=== PATIENT | male | born 1965 | race Caucasian/White ===

== ENCOUNTER → 2019-09-01 14:58 | Outpatient (BNVA) | payer SELFPAY | PROVIDERS: Visit Provider Family Medicine | DX: I10 Essential (primary) hypertension (principal) | CPT/HCPCS: 80048 ==

== ENCOUNTER → 2019-09-06 14:46 | Outpatient (BNVA) | payer SELFPAY | PROVIDERS: Visit Provider Family Medicine | DX: R73.09 Other abnormal glucose (principal) | CPT/HCPCS: 83036 ==

== ENCOUNTER → 2019-09-30 15:10 | Outpatient (BNVA) | payer SELFPAY | PROVIDERS: PCP Family Medicine; Visit Provider Family Medicine | DX: E11.9 Type 2 diabetes mellitus without complications (principal); I10 Essential (primary) hypertension | CPT/HCPCS: 80048; 82044 ==

== ENCOUNTER → 2019-11-02 09:09 | Outpatient (BNVA) | payer SELFPAY | PROVIDERS: PCP Family Medicine; Visit Provider Family Medicine | DX: E11.9 Type 2 diabetes mellitus without complications (principal) | CPT/HCPCS: 80053; 80061; 84153 ==

== ENCOUNTER → 2020-02-02 09:11 | Outpatient (BNVA) | payer SELFPAY | PROVIDERS: PCP Family Medicine; Visit Provider Family Medicine | DX: E11.9 Type 2 diabetes mellitus without complications (principal); I10 Essential (primary) hypertension | CPT/HCPCS: 80053; 83036 ==

== ENCOUNTER → 2020-05-04 09:31 | Outpatient (BNVA) | payer BC, SELFPAY | PROVIDERS: PCP Family Medicine; Visit Provider Family Medicine | DX: E78.5 Hyperlipidemia, unspecified (principal); I10 Essential (primary) hypertension; F17.219 Nicotine dependence, cigarettes, with unspecified nicotine-induced disorders | CPT/HCPCS: 80053; 80061 ==

== ENCOUNTER 2020-08-23 13:50 | Emergency (ER) | payer BC, SELFPAY ==
[2020-08-23 14:32] VITALS: BP 146/93; PULSE 79; RESP 16; TEMP 36.5; O2SAT 98; BMI 34.4
--- NOTE | 2020-08-23 14:39 | W.ED.EXTPRO ---
HPI - Extremity Problem General: Chief complaint: Extremity Injury, Upper Stated complaint: arm injury / fall Time Seen by Provider: 08/23/20 14:39 Source: patient Mode of arrival: ambulatory Limitations: no limitations History of Present Illness: HPI Narrative: Patient is a 54-year-old male who presents to ED today with a complaint of a right forearm/elbow injury. Patient states he was carrying a heavy dresser when he slipped on wet grass and fell. He states the corner of the dresser landed onto his right proximal forearm/elbow. He has noticed pain and swelling since the event. No other injuries or complaints at this time. MD Complaint: extremity pain and extremity swelling Onset (ago): hour(s) Pain Consistency: constant Location: right and upper extremity Radiation: none Relieving factors: immobilization Exacerbating factors: range of motion and palpation Associated symptoms: Reports no associated symptoms Review of Systems Musc: Reports: extremity pain (R forearm) and extremity swelling (R forearm-localized to site of injury); Denies: joint pain, joint swelling, joint stiffness or limited range of motion Neuro: Denies: numbness in extremities, weakness in extremities or sensory changes PFSH ED PFSH: Medical History (Updated 08/23/20 @ 15:23 by MARIBETH Tineo) History of kidney cancer Surgical History H/O hernia repair H/O knee surgery History of back surgery History of cholecystectomy History of kidney removal 2017 - right History of tonsillectomy Family History Other Hypertension Social History Smoking and tobacco status: current every day smoker cigarettes Packs smoked per day: 0.50 Alcohol intake: current Alcohol intake frequency: holidays/special occasions only Physical Exam Const: COMMON NORMALS: no acute distress, patient oriented x3, no limitations and alert Extremity: EXTREMITY IMAGE (FRONT): 1. superficial abrasion; mild amount of localized pain/swelling; full ROM of elbow; no pain out of proportion to exam; can wiggle all fingers and flex/ext wrist w/o much discomfort; sensory intact; radial pulse normal; cap refill brisk Neuro: COMMON NORMALS: patient oriented x3, moves all extremities, no focal motor deficits and no sensory deficits noted SENSORIUM/ORIENTATION: Yes alert Skin: NARRATIVE SKIN EXAM: R forearm abrasion-otherwise normal skin exam Course Vital Signs: Vital signs: Vital Signs Temperature 97.7 F 08/23/20 14:32 Pulse Rate 79 08/23/20 14:32 Respiratory Rate 16 08/23/20 14:32 Blood Pressure 146/93 08/23/20 14:32 Pulse Oximetry 98 08/23/20 14:32 MDM - Extremity (Nontraumatic) Imaging Data^: XR R elbow/proximal forearm: Radiologist's impression: [address] [address] XRay Report Signed Patient: Jules Chávez Unit #: [id number] : 1965 Age/Sex: 54 / M ADM Date: 08/23/20 Loc: ER Room/Bed: Attending Dr: Ordering Provider/Ordering MD: Belinda Silvestre Date of Service: 08/23/20 Procedure(s): XR elbow RT min 3V* [id number] Accession Number(s): [id number] Report Number: [id number] WS: [id number] Exam: XR elbow RT min 3V* [id number] Date/Time of Exam: 08/23/2020 2:46 PM Reason For Exam: trauma; crush injury Findings: There are no fractures, soft tissue swelling, or calcifications. The elbow shows normal bony alignment. There is no irregularity of the bony architecture. XR/XR elbow RT min 3V* [id number] IMPRESSION: Negative right elbow. Dictated By: Nima Reeves DO Signed By: Nima Reeves DO Signed Date/Time: 08/23/20 1502 DD/ 1501 Discharge Plan Discharge Patient Disposition: Home Clinical Impression: Contusion of forearm, right Qualifiers: Encounter type: initial encounter Qualified Code(s): S50.11XA - Contusion of right forearm, initial encounter Condition: Stable Prescriptions: No Action amlodipine [Norvasc] 5 mg tablet 5 mg PO DAILY Qty: 90 RF: 0 Januvia 100 mg tablet 100 mg PO DAILY Qty: 90 RF: 1 lisinopril 20 mg tablet 20 mg PO DAILY Qty: 90 RF: 1 aspirin [Adult Low Dose Aspirin] 81 mg tablet,delayed release (DR/EC) 81 mg PO DAILY RF: 0 metformin 500 mg tablet 500 mg PO DAILY Qty: 90 RF: 0 atorvastatin 40 mg tablet 40 mg PO .at bedtime Qty: 90 RF: 1 sildenafil (pulm.hypertension) 20 mg tablet See Rx Instructions PO .COMPLEX Qty: 30 RF: 1 Discharge Orders: Discharge ED (Routine); Ordered 08/23/20 Ordered By: Belinda Silvestre Referrals: Anjana Gordon DO [Primary Care Provider] - Patient Instructions: Contusion, RICE Therapy (ED) Activity Restrictions/Additional Instructions: As discussed you may return to the emergency department for worsening or uncontrollable pain, severe pain in your forearm with wiggling your fingers, firmness/hardness noted to the forearm, tingling or loss of sensation, coolness to the extremity, streaking up your arm, fevers, any other concerns you may have. Coding Level of Care Code ED Party Plan Sales Director for Tom Reina
--- NOTE | 2020-08-23 14:46 | XR_ITS ---
WS: [id number] Exam: XR elbow RT min 3V* [id number] Date/Time of Exam: 08/23/2020 2:46 PM Reason For Exam: trauma; crush injury Findings: There are no fractures, soft tissue swelling, or calcifications. The elbow shows normal bony alignme nt. There is no irregularity of the bony architecture. XR/XR elbow RT min 3V* [id number] IMPRESSION: Negative right elbow.
== END 2020-08-23 15:34 | disposition home or self-care (01) ==
PROVIDERS: Emergency Provider Physician Assistant; PCP Family Medicine
DX: S50.11XA Contusion of right forearm, initial encounter (principal); W01.190A Fall on same level from slipping, tripping and stumbling with subsequent striking against furniture, initial encounter
CPT/HCPCS: 73080; 99282

== ENCOUNTER → 2020-10-27 14:09 | Outpatient (BNVA) | payer BC, SELFPAY | PROVIDERS: PCP Family Medicine; Visit Provider Family Medicine | DX: E78.5 Hyperlipidemia, unspecified (principal); I10 Essential (primary) hypertension; E11.9 Type 2 diabetes mellitus without complications; R60.0 Localized edema | CPT/HCPCS: 80053; 83036; 85025 ==

== ENCOUNTER → 2020-11-23 09:43 | Outpatient (BNVA) | payer BC, SELFPAY | PROVIDERS: PCP Family Medicine; Visit Provider Family Medicine | DX: R60.0 Localized edema (principal); E11.9 Type 2 diabetes mellitus without complications; I10 Essential (primary) hypertension; F17.219 Nicotine dependence, cigarettes, with unspecified nicotine-induced disorders | CPT/HCPCS: 80048 ==

== ENCOUNTER → 2021-01-08 09:35 | Outpatient (BNVA) | payer BC, SELFPAY | PROVIDERS: PCP Family Medicine; Visit Provider Family Medicine | DX: E11.9 Type 2 diabetes mellitus without complications (principal); E78.5 Hyperlipidemia, unspecified; Z23 Encounter for immunization; I10 Essential (primary) hypertension; F17.219 Nicotine dependence, cigarettes, with unspecified nicotine-induced disorders | CPT/HCPCS: 80053; 80061; 83036 ==

== ENCOUNTER → 2021-02-15 08:55 | Outpatient (BNVA) | payer BC, SELFPAY | PROVIDERS: PCP Family Medicine; Visit Provider Family Medicine | DX: E11.9 Type 2 diabetes mellitus without complications (principal) | CPT/HCPCS: 80053 ==

== ENCOUNTER → 2021-04-12 08:55 | Outpatient (BNVA) | payer BC, SELFPAY | PROVIDERS: PCP Family Medicine; Visit Provider Family Medicine | DX: E11.9 Type 2 diabetes mellitus without complications (principal); I10 Essential (primary) hypertension; F17.219 Nicotine dependence, cigarettes, with unspecified nicotine-induced disorders | CPT/HCPCS: 80053; 83036 ==

== ENCOUNTER → 2021-11-02 10:48 | Outpatient (BNVA) | payer BC, SELFPAY | PROVIDERS: PCP Family Medicine; Visit Provider Family Medicine | DX: I10 Essential (primary) hypertension (principal); E11.9 Type 2 diabetes mellitus without complications; R35.1 Nocturia | CPT/HCPCS: 80053; 80061; 82043; 83036; 84153; 85025 ==

== ENCOUNTER → 2022-02-01 09:44 | Outpatient (BNVA) | payer BC, SELFPAY | PROVIDERS: PCP Family Medicine; Visit Provider Family Medicine | DX: I10 Essential (primary) hypertension (principal); E78.5 Hyperlipidemia, unspecified; E11.9 Type 2 diabetes mellitus without complications; K21.9 Gastro-esophageal reflux disease without esophagitis; R60.0 Localized edema | CPT/HCPCS: 80053; 80061; 83036 ==

== ENCOUNTER → 2022-07-30 08:30 | Outpatient (BNVA) | payer BC, SELFPAY | PROVIDERS: PCP Family Medicine; Visit Provider Family Medicine | DX: E11.9 Type 2 diabetes mellitus without complications (principal) | CPT/HCPCS: 80053; 83036 ==

== ENCOUNTER → 2023-02-18 09:55 | Outpatient (BNVA) | payer BC, SELFPAY | PROVIDERS: PCP Family Medicine; Visit Provider Family Medicine | DX: E11.9 Type 2 diabetes mellitus without complications (principal); R35.1 Nocturia | CPT/HCPCS: 80053; 80061; 82043; 83036; 84153; 85025 ==

== ENCOUNTER → 2023-05-15 08:34 | Outpatient (BNVA) | payer BC, SELFPAY | PROVIDERS: PCP Family Medicine; Visit Provider Family Medicine | DX: E11.9 Type 2 diabetes mellitus without complications (principal); R60.0 Localized edema; K21.9 Gastro-esophageal reflux disease without esophagitis; N52.1 Erectile dysfunction due to diseases classified elsewhere | CPT/HCPCS: 80053; 83036; 84403 ==

== ENCOUNTER → 2023-08-28 10:09 | Outpatient (BNVA) | payer OTHER, SELFPAY | PROVIDERS: PCP Family Medicine; Visit Provider Family Medicine | DX: E11.9 Type 2 diabetes mellitus without complications (principal); T14.8XXA Other injury of unspecified body region, initial encounter; W57.XXXA Bitten or stung by nonvenomous insect and other nonvenomous arthropods, initial encounter | CPT/HCPCS: 80053; 83036; 86618; 86666; 86757 ==

== ENCOUNTER 2023-12-05 06:00 | Outpatient (CLI) | payer OTHER, SELFPAY | END 2023-12-05 06:01 | disposition home or self-care (01) | LOC: RAD 12-08 09:24 | PROVIDERS: PCP Family Medicine; Visit Provider Family Medicine | DX: E11.9 Type 2 diabetes mellitus without complications (principal) | CPT/HCPCS: 83036 ==

== ENCOUNTER 2023-12-23 08:36 | Outpatient (CLI) | payer OTHER, SELFPAY ==
--- NOTE | 2023-12-23 08:42 | CT_ITS ---
WS: [id number] LDCT LUNG CANCER SCREENING TECHNIQUE: Noncontrast CT of the chest with coronal and sagittal reformatted images. CLINICAL INFORMATION: LDCT lung cancer screening; nicotine dependence COMPARISON: None. DLP: 120.09 mGy.cm DIvol: Mean CTDIvol: 2.90 (mGy) All CT scans at [facility] use at least one of these dose optimization techniques: automat ed exposure control; mA and/or kV adjustment per patient size (includes targeted exams where dose is matched to clinical indication); or iterative reconstruction. FINDINGS: No suspicious pulmonary parenchymal abnormalities. Lungs are well aerated. Mild thoracic curve. Moderate thoracic kyphosis. Cholecystectomy clips. Normal GE junction. Fluid dis tended stomach. Adrenal glands are normal. Coronary calcification. No mediastinal or hilar lymphadeno pepper. No axillary lymphadenopathy. CT/CT lung screening [id number] IMPRESSION: LUNG-RADS: 1-Negative FOLLOW UP: 12 Month: Continue annual screening with LDCT
== END 2023-12-23 08:37 | disposition home or self-care (01) ==
LOC: RAD 08:37
PROVIDERS: PCP Family Medicine; Visit Provider Family Medicine
DX: Z13.820 Encounter for screening for osteoporosis (principal); F17.219 Nicotine dependence, cigarettes, with unspecified nicotine-induced disorders; E11.9 Type 2 diabetes mellitus without complications; M40.204 Unspecified kyphosis, thoracic region; Z90.49 Acquired absence of other specified parts of digestive tract; I25.84 Coronary atherosclerosis due to calcified coronary lesion
CPT/HCPCS: 71271

== ENCOUNTER → 2024-03-01 08:22 | Outpatient (BNVA) | payer OTHER, SELFPAY | PROVIDERS: PCP Family Medicine; Visit Provider Family Medicine | DX: Z00.00 Encounter for general adult medical examination without abnormal findings (principal); E11.9 Type 2 diabetes mellitus without complications | CPT/HCPCS: 80053; 80061; 82043; 84443; 85025; G0103 ==

== ENCOUNTER → 2024-03-08 14:56 | Outpatient (BNVA) | payer OTHER, SELFPAY | PROVIDERS: PCP Family Medicine; Visit Provider Nurse Practitioner | DX: M70.61 Trochanteric bursitis, right hip (principal); M70.62 Trochanteric bursitis, left hip; M16.0 Bilateral primary osteoarthritis of hip; M25.551 Pain in right hip | CPT/HCPCS: 73502 ==

== ENCOUNTER 2024-03-22 05:44 | Day surgery (SDC) | payer OTHER, SELFPAY ==
--- NOTE | 2024-03-21 10:42 | ANES.PREANE2 ---
Pre-Anesthetic Assessment Height/Weight: Height 5 ft 7 in Preop Diagnosis: Sebaceous cyst Operation Date: 03/22/24 07:00 Proposed Procedures p excision of sebaceous cyst 06273, L72.3(Not Applicable) - Nacho Schmitz MD Was Beta Sharee taken within 24 hours: N/A Was Clonidine taken within 24 hours: N/A Social Tobacco and No alcohol Exam alert, oriented x 3 and regular rate & rhythm Decreased breath sounds bilaterally Airway Submandibular: within normal limits Cervical ROM: within normal limits Mallampati: Class III Dentition: other (Edentulous with very large lau) Anesthetic Plan ASA status: 3 Anesthesia: General Other: No prior issues with anesthesia NPO since yesterday History of diabetes on metformin and semaglutide. Last taken 2 weeks ago GERD on Protonix Hypertension on lisinopril Current smoker Labs 03/01/2024 reviewed acceptable for procedure. METs greater than 4 Plan for general anesthesia Medications/Allergies Home Medications Medication Instructions Recorded Confirmed Last Taken Type aspirin 81 mg tablet,delayed 81 mg PO DAILY 05/04/20 03/18/24 03/09/24 History release (Adult Low Dose Aspirin) atorvastatin 40 mg tablet 40 mg PO .at bedtime #90 tabs 12/05/23 03/22/24 03/21/24 Rx furosemide 20 mg tablet 20 mg PO DAILY PRN edema #90 tabs 12/05/23 03/22/24 03/21/24 Rx lisinopril 20 mg tablet 20 mg PO DAILY #90 tabs 12/05/23 03/22/24 03/21/24 Rx metformin 500 mg tablet,extended 500 mg PO DAILY #90 tabs 12/05/23 03/22/24 03/21/24 Rx release 24 hr pantoprazole 40 mg tablet,delayed 40 mg PO DAILY #90 tabs 12/05/23 03/22/24 03/21/24 Rx release semaglutide 1 mg/dose (4 mg/3 mL) 1 mg (0.75 mL) SUBCUT .weekly 90 12/05/23 03/22/24 03/08/24 Rx subcutaneous pen injector (Ozempic) days #9 mL diclofenac sodium 1 % topical gel 4 g topical QID #100 grams 03/08/24 03/22/24 Unknown Rx clindamycin HCl 300 mg capsule 300 mg PO Q8H 7 days #21 caps 03/16/24 03/22/24 03/21/24 Rx Allergies Allergy/AdvReac Type Severity Reaction Status Date / Time codeine Allergy Mild NAUSEA Verified 03/18/24 13:02 Penicillins Allergy Unresponsiv Verified 03/01/24 07:54 e varenicline [From Chantix] Allergy HIVES Verified 03/18/24 13:02 PFSH Anesthesia Medical History Screening for lung cancer done 12.23.23--to repeat 1 yr Hx of renal cell cancer R nephrectomy 2017 Chronic right hip pain Leg edema Dyslipidemia Erectile dysfunction Type 2 diabetes mellitus, without long-term current use of insulin Nicotine dependence, cigarettes, with unspecified nicotine-induced disorders started age 17, was up to 2 ppd at one point Hypertension History of kidney cancer Right--renal cell carcinoma; R nephrectomy 2017 Surgical History Hx of colonoscopy 1.2015--repeat 10yrs History of kidney removal 2017 - right H/O knee surgery R knee arthroscopy 1985 History of tonsillectomy History of cholecystectomy H/O hernia repair Umbilical History of back surgery L4 L5 L6 fusion Family History Mother Breast cancer Brother Leukemia Other CAD (coronary artery disease) Hypertension Social History Smoking and tobacco/nicotine status: current every day tobacco/nicotine user cigarettes Packs smoked per day: 0.50 Alcohol intake: current Alcohol intake frequency: holidays/special occasions only Substance/Drug Use: never Household members: spouse Marital status: Number of children: 4 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
[2024-03-22] VITALS (10 sets, daily range): BP systolic 73–128; BP diastolic 52–80; PULSE 84–95; RESP 16–20; TEMP 36.2–36.6; O2SAT 94–100
--- NOTE | 2024-03-22 05:14 | P.HPUD_ITS ---
Surgery/Procedure H&P Update DATE OF PROCEDURE: March 22, 2024 DATE H&P PERFORMED: 03/16/24 H&P UPDATE INFORMATION: I have reviewed H&P completed within last 30 days, I have examined patient prior to procedure, No changes to prior documentation and H&P is in [facility] EMR on date indicated PREOP DIAGNOSIS: Sebaceous cyst PLANNED PROCEDURE: Operation Date: 03/22/24 07:00 Proposed Procedures p excision of sebaceous cyst 68766, L72.3(Not Applicable) - Nacho Schmitz MD
[2024-03-22] MEDS: sodium chloride 0.9% 1,000 ML 30 ML IV (06:09)
[2024-03-22] MEDS: vancomycin 1,500 MG/300 ML PIGGYBACK 200 MG IV (06:15)
[2024-03-22 06:18] LABS: Glucose Point of Care 134 mg/dL (70-110)
[2024-03-22] MEDS: lidocaine-epi 1% 20 mL INJ 10 ML INJECTION (07:26)
[2024-03-22] MEDS: BUPivacaine 0.25% INJ 10 mL INJECTION (07:26)
[2024-03-22] MEDS: VANCOMYCIN ADD-Vantage 1,000 MG VIAL 1000 MG XX (08:05)
--- NOTE | 2024-03-22 08:50 | P.OP_ITS ---
Operative Report Date of procedure: March 22, 2024 Pre-op diagnosis: Sebaceous cyst of the back Post-op diagnosis: Sebaceous cyst of the back with superimposed infection. Post-op findings: There was a large sebaceous cyst of the mid back measuring about 4 x 3 cm and tracking deep up to the level of the fascia. There was superficial redness, upon entering the cyst some purulent material was evacuated cultures were taken. Procedure done: Excision of sebaceous cyst of the back Surgeon: Nacho Schmitz MD Transformer Maker: DEEDEE OR Staff Estimated blood loss: 5 Brief History: This is a 58-year-old male who has a history of sebaceous cyst of the back presented for excision, during preoperative evaluation was noted that the area had become red and increased in size concerning for the possibility of a superimposed infection. After discussion we will resume benefits with side to proceed to the OR for excision. Procedure: Patient was brought into the OR, general anesthesia was given, he was then transferred to the OR bed in a prone position. The back was prepped and draped in usual sterile fashion. An proceeded to amrit the cyst elliptical marking of about 5 cm was done to try to include the cyst in the area where it was closest to the skin. A timeout was conducted. I then proceeded to make an incision using a 15 blade, the incision was deepened to subcutaneous tissue using the blade until the cyst capsule was identified there was some area of fluctuance in the wall of the cyst this area was penetrated and some purulence drained, cultures were obtained. I then proceeded to create flaps on the superior inferior medial and lateral direction with electrocautery surrounding the cyst wall. The cyst was large measuring probably about 5 x 4 cm, I then circumferentially dissected this is to the base, the base was noted to track very deep into the subcutaneous tissue and was closely adherent to the muscular fascia. I transected the cyst at this level and send the specimen to pathology I then used a curette to remove any residual capsule from the base of the wound. The wound was then irrigated with saline. Hemostasis was achieved. Local anesthesia was infiltrated in the tissue. I then irrigated the wound once again and apply some vancomycin powder to facilitate healing of the superimposed infection. Due to purulence noted on the cyst I decided to leave a small opening to allow for packing. I used a 2-0 Vicryl to close the deeper layer of the tissue I then used 3-0 Vicryl to close the subcutaneous tissue number 3-year-old nylon for vertical mattress sutures for the skin. A 1 cm opening was left in the middle of the wound to allow for packing, however inch iodoform packing was inserted through that cavity and a sterile dressing was applied. At the end of the procedure all counts were correct, the patient tolerated well the procedure was transferred to the PACU in stable condition.
--- NOTE | 2024-03-22 09:38 | ANE.PACU2 ---
Inpatient post-anesthesia follow up: Airway intact: Yes Vital signs: Temperature 97.2 F Pulse Rate 88 Respiratory Rate 20 Blood Pressure 122/66 Pulse Oximetry 100 Oxygen Delivery Me thod Room Air Oxygen Flow Rate Fraction of Inspir ed Oxygen Hydration adequate: Yes Nausea and vomiting: No Pain level: 1 Mental status: Baseline
== END 2024-03-22 09:38 | disposition home or self-care (01) ==
PROVIDERS: PCP Family Medicine; Visit Provider Surgery
PROC: (CPT 11404; principal; 2024-03-22 07:00)
DX: L72.0 Epidermal cyst (principal); E11.9 Type 2 diabetes mellitus without complications; Z79.84 Long term (current) use of oral hypoglycemic drugs; K21.9 Gastro-esophageal reflux disease without esophagitis; I10 Essential (primary) hypertension; Z79.82 Long term (current) use of aspirin; E78.5 Hyperlipidemia, unspecified; F17.210 Nicotine dependence, cigarettes, uncomplicated
CPT/HCPCS: 11404; 12032; 36416; 82962; 87070; 87075; 87205; 88304; J0330; J1100; J2250; J2371; J2405; J2704; J3010; J3370; J3490; J7030

== ENCOUNTER → 2024-06-29 08:45 | Outpatient (BNVA) | payer OTHER, SELFPAY | PROVIDERS: PCP Family Medicine; Visit Provider Family Medicine | DX: E11.9 Type 2 diabetes mellitus without complications (principal); D50.9 Iron deficiency anemia, unspecified; F50.83 Pica in adults | CPT/HCPCS: 80053; 82728; 83036; 83550; 85025 ==

== ENCOUNTER 2024-08-29 16:42 | Emergency (ER) | payer OTHER, SELFPAY ==
[2024-08-29 16:52] VITALS: BP 123/97; PULSE 103; RESP 16; TEMP 36.8; O2SAT 96; BMI 34.4
[2024-08-29 16:59] VITALS: BP 123/97
--- NOTE | 2024-08-29 17:08 | XRR_ITS ---
PROCEDURE INFORMATION: Exam: XR Right Ankle Exam date and time: 08/29/2024 5:16 PM Age: 58 years old Clinical indication: Injury or trauma; Fall; Blunt trauma; Ankle; Right TECHNIQUE: Imaging protocol: Radiologic exam of the right ankle. Views: 3 or more views. COMPARISON: No relevant prior studies available. FINDINGS: Bones/joints: No acute fracture or subluxation. No periosteal reaction or callus formation. Plantar calcaneal spur and Achilles enthesophyte (heel spur) are present. Soft tissues: Unremarkable. XR/XR ankle RT min 3V* [id number] IMPRESSION: No acute fracture or subluxation.
[2024-08-29] MEDS: sodium chloride 0.9% 1,000 ML 999 ML IV (17:29)
[2024-08-29 18:03] LABS: Basophils % 0.3 %; Eosinophils % 0.2 %; Hematocrit 31.4 % (37-53); Lymphocytes # 1.1 10^3/uL (0.8-4.8); Lymphocytes % 8.5 %; Mean Corpuscular HGB Conc 30.6 g/dL (30-55); Mean Corpuscular Hemoglobin 23.6 pg (27-33); Mean Corpuscular Volume 77.1 fl (82-101); Mean Platelet Volume 8.6 fL (7.4-10.4); Monocytes # 1.3 10^3/uL (0.2-0.9); Monocytes % 10.1 %; Neutrophils # 10.36 10^3/uL (1.8-7.7); Neutrophils % 80.5 %; Nucleated Red Blood Cells % 0 %; Platelet Count 264 10^3/cmm (157-399); Red Blood Count 4.07 10^6/uL (3.85-5.65); Red Cell Distribution Width 19.7 % (12.1-15.1); White Blood Count 12.86 10^3/uL (3.29-11.43)
[2024-08-29 18:21] VITALS: BP 151/83; O2SAT 100
[2024-08-29 18:26] LABS: Anion Gap 15.8 (5-19); Blood Urea Nitrogen 11 mg/dL (6-20); Calcium 8.1 mg/dL (8.5-10.5); Carbon Dioxide 21 mmol/L (22-29); Chloride 101 mmol/L (98-107); Glucose 142 mg/dL (65-115); Osmolality Calculated 280 mOsm/kg (285-295); Potassium 3.8 mmol/L (3.5-5.1); Sodium 134 mmol/L (136-145)
--- NOTE | 2024-08-29 19:45 | ED_ITS ---
HPI - Nausea/Vomiting/Diarrhea 2 General: Chief complaint: Nausea/Vomiting/Diarrhea Stated complaint: N/V Time Seen by Provider: 08/29/24 16:53 History of Present Illness: This patient is a 58-year-old white male who presents to the emergency department after having a syncopal episode. Patient states he was working outside all day and got dehydrated. He has been doing a lot of yard work and mowing. States he has had some diarrhea, nausea and vomiting as well. No chest pain or shortness of breath. He did twist the right ankle when he had the syncopal episode. Past medical history includes hypertension and [id number] diabetes. Patient also has a history of iron deficiency anemia. Associated nausea: Yes Associated symtoms: Reports nausea and syncope Related Data Home Medications ?Medication ?Instructions ?Recorded ?Confirmed aspirin 81 mg tablet,delayed 81 mg PO DAILY 05/04/20 0 08/02/24 release (Adult Low Dose Aspirin) ascorbic acid (vitamin C) 500 mg mg PO 08/02/24 capsule ferrous sulfate 325 mg (65 mg 325 mg PO DAILY 08/02/24 08/02/24 iron) tablet Previous Rx's ?Medication ?Instructions ?Recorded atorvastatin 40 mg tablet 40 mg PO .at bedtime #90 tab s 12/05/23 lisinopril 20 mg tablet 20 mg PO DAILY #90 tabs 09/21 pantoprazole 40 mg tablet,delayed 40 mg PO DAILY #90 t abs 12/05/23 release diclofenac sodium 1 % topical gel 4 g topical QID #100 grams 03/08/24 furosemide 20 mg tablet 20 mg PO DAILY PRN edema #90 tabs 06/29/24 metformin 500 mg tablet,extended 500 mg PO DAILY #90 t abs 06/29/24 release 24 hr Glucometer #1 ea 07/01/24 Glucose test strips #100 ea 07/01/24 Lancets #100 ea 07/01/24 vitamin-ferrous fumarate 1 tab PO DAILY #30 t abs 08/02/24 28 mg iron-folic acid 800 mcg tablet ( Vitamins with Minerals) semaglutide 2 mg/dose (8 mg/3 mL) 2 mg (0.75 mL) SUBCU T .Weekly #3 mL 08/02/24 subcutaneous pen injector (Ozempic) Allergies Allergy/AdvReac Type Severity Reaction Status Date / Time codeine Allergy Mild NAUSEA Verified 08/02/24 08:05 Penicillins Allergy Unresponsiv Verified 08/02/24 08:05 e varenicline (From Chantix) Allergy HIVES Verified 08/02/24 08:05 Review of Systems 2 General: Reports: 10 or more systems reviewed and unremarkable except in HPI and below Card: Reports: syncope GI: Reports: nausea, vomiting and diarrhea PFSH ED 2 PFSH: Medical History Hx of sebaceous cyst 03/22/24 Dr Schmitz Sebaceous cyst of the back Screening for lung cancer done 12.23.23--to repeat 1 yr Hx of renal cell cancer R nephrectomy 2017 Chronic right hip pain Leg edema Dyslipidemia Erectile dysfunction Type 2 diabetes mellitus, without long-term current use of insulin Nicotine dependence, cigarettes, with unspecified nicotine-induced disorders started age 17, was up to 2 ppd at one point Hypertension History of kidney cancer Right--renal cell carcinoma; R nephrectomy 2017 Surgical History Hx of colonoscopy 1.2015--repeat 10yrs History of kidney removal 2017 - right H/O knee surgery R knee arthroscopy 1985 History of tonsillectomy History of cholecystectomy H/O hernia repair Umbilical History of back surgery L4 L5 L6 fusion Family History Mother Breast cancer Brother Leukemia Other CAD (coronary artery disease) Hypertension Social History Smoking and tobacco/nicotine status: current every day tobacco/nicotine user cigarettes Packs smoked per day: 0.50 Alcohol intake: current Alcohol intake frequency: holidays/special occasions only Substance/Drug Use: never Household members: spouse Marital status: Number of children: 4 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 Physical Exam 2 Const: COMMON NORMALS: no acute distress, patient oriented x3 and no limitations GENERAL APPEARANCE: cooperative and comfortable HENMT: COMMON NORMALS: normocephalic, atraumatic, Normal nasal mucous membranes and turbinates present, moist oral mucous membranes and oropharynx normal HEAD & SCALP: normal to inspection, normocephalic and atraumatic F ODIN & SINUS: normal facial exam NOSE: Normal nasal mucous membranes and turbinates present Eye: COMMON NORMALS: Equal, round and reactive pupils present, EOMs intact bilaterally and conjunctivae normal GENERAL EYE: appearance normal, both eyes and all related structures CONJUNCTIVA: Yes conjunctivae normal PUPIL: Yes Equal, round and reactive pupils present Neck/C-Spine: COMMON NORMALS: supple and no JVD Chest: COMMONS NORMALS: normal inspection of the chest Resp: COMMON NORMALS: normal respiratory effort and clear to auscultation bilaterally AUSCULTATION: clear to auscultation bilaterally Cardio: COMMON NORMALS: no JVD, regular rate, regular rhythm, No gallops present (Cardio), No murmurs present (Cardio) and No rub (Cardio) RATE: r egular rate RHYTHM: regular rhythm GI: COMMON NORMALS: Normal to inspection, nondistended, normoactive bowel sounds present, Soft to palpation and non-tender AUSCULTATION: Yes normoactive bowel sounds PALPATION: Yes Soft to palpation : COMMON NORMALS: Yes no CVA tenderness BLADDER/KIDNEY EXAM: Yes no CVA tenderness Back/Pelvis: COMMON NORMALS: no CVA tenderness and thoracic and lumbar spine normal to inspection Extremity: COMMON NORMALS: normal to inspection Neuro: COMMON NORMALS: patient oriented x3 and CN's II-XII intact bilaterally Psych: COMMON NORMALS: mental status grossly normal, Normal thought process present and cooperative THOUGHT PROCESS: Normal thought process present Skin: COMMON NORMALS: no rashes or lesions noted, turgor normal and no jaundice GENERAL SKIN EXAM: no rashes or lesions noted and turgor normal Course 2 Vital Signs: Vital signs: Vital Signs Temperature 98.3 F 08/29/24 16:52 Pulse Rate 103 H 08/29/24 16:52 Respiratory Rate 16 08/29/24 16:52 Blood Pressure 151/83 08/29/24 18:21 Pulse Oximetry 100 08/29/24 18:21 Oxygen Delivery Me thod Room Air 08/29/24 18:21 MDM - Nausea/Vomiting/Diarrhea Medical Decision Making CBC reveals white blood cell count of 12.9. Hemoglobin 9.6. BMP revealed a blood sugar of 142. Patient was given 4 mg of Zofran IV and 1 L of normal saline. Patient states he is feeling back to normal. He was discharged in stable condition. Recommended he push fluids and get some rest. Follow-up with primary care physician as needed. Lab Data 08/29/24 17:58 08/29/24 17:58 Radiology Impressions Ankle X-Ray 08/29/24 17:08 IMPRESSION: No acute fracture or subluxation. Laboratory Results WBC 12.86 10^3/uL (3.29-11.43) H 08/29/24 17:58 RBC 4.07 10^6/uL (3.85-5.65) 08/29/24 17:58 Hgb 9.60 g/dL (11.27-16.99) L 08/29/24 17:58 Hct 31.4 % (37-53) L 08/29/24 17:58 MCV 77.1 fl (82-101) L 08/29/24 17:58 MCH 23.6 pg (27-33) L 08/29/24 17:58 MCHC 30.6 g/dL (30-55) 08/29/24 17:58 RDW 19.7 % (12.1-15.1) H 08/29/24 17:58 Plt Count 264 10^3/cmm (157-399) 08/29/24 17:58 MPV 8.6 fL (7.4-10.4) 08/29/24 17:58 Neut % (Auto) 80.5 % 08/29/24 17:58 Lymph % (Auto) 8.5 % 08/29/24 17:58 Long % (Auto) 10.1 % 08/29/24 17:58 Eos % (Auto) 0.2 % 08/29/24 17:58 Baso % (Auto) 0.3 % 08/29/24 17:58 Neut # (Auto) 10.36 10^3/uL (1.8-7.7) H 08/29/24 17:58 Lymph # (Auto) 1.1 10^3/uL (0.8-4.8) 08/29/24 17:58 Long # (Auto) 1.3 10^3/uL (0.2-0.9) H 08/29/24 17:58 Eos # (Auto) 0.0 10^3/uL (0.0-0.8) 08/29/24 17:58 Baso # (Auto) 0.0 10^3/uL (0.0-0.1) 08/29/24 17:58 Nucleated RBC % (auto) 0 % 08/29/24 17:58 Nucleated RBCs # 0.0 /100WBC 08/29/24 17:58 Sodium 134 mmol/L (136-145) L 08/29/24 17:58 Potassium 3.8 mmol/L (3.5-5.1) 08/29/24 17:58 Chloride 101 mmol/L (98-107) 08/29/24 17:58 Carbon Dioxide 21 mmol/L (22-29) L 08/29/24 17:58 Anion Gap 15.8 (5-19) 08/29/24 17:58 BUN 11 mg/dL (6-20) 08/29/24 17:58 Creatinine 1.1 mg/dL (0.7-1.2) 08/29/24 17:58 GFR Calculation 69.0 mL/min (90-130) L 08/29/24 17:58 Glucose 142 mg/dL (65-115) H 08/29/24 17:58 Calculated Osmolality 280 mOsm/kg (285-295) L 08/29/24 17:58 Calcium 8.1 mg/dL (8.5-10.5) L 08/29/24 17:58 No radiology studies performed this visit Discharge Plan Discharge Patient Disposition: Home Clinical Impression: Dehydration Ankle sprain Qualifiers: Encounter type: initial encounter Involved ligament of ankle: unspecified ligament Laterality: right Qualified Code(s): S93.401A - Sprain of unspecified ligament of right ankle, initial encounter Anemia Qualifiers: Anemia type: iron deficiency Iron deficiency anemia type: unspecified iron deficiency Qualified Code(s): D50.9 - Iron deficiency anemia, unspecified Condition: Stable Prescriptions: No Action aspirin [Adult Low Dose Aspirin] 81 mg tablet,delayed release (DR/EC) 81 mg PO DAILY atorvastatin 40 mg tablet 40 mg PO .at bedtime Qty: 90 3RF lisinopril 20 mg tablet 20 mg PO DAILY Qty: 90 3RF pantoprazole 40 mg tablet,delayed release (DR/EC) 40 mg PO DAILY Qty: 90 3RF diclofenac sodium 1 % gel 4 g topical QID Qty: 100 2RF Rx Instructions: apply to single knee, ankle, foot; for foot includes sole/toes/top of foot ferrous sulfate 325 mg (65 mg iron) tablet 325 mg PO DAILY ascorbic acid (vitamin C) 500 mg capsule PO vit-iron fum-folic ac [ Vitamin with Minerals] 28 mg iron- 800 mcg tablet 1 tab PO DAILY Qty: 30 5RF Ozempic 2 mg/dose (8 mg/3 mL) pen injector 2 mg SUBCUT .Weekly Qty: 3 1RF metformin 500 mg tablet extended release 24 hr 500 mg PO DAILY Qty: 90 3RF furosemide 20 mg tablet 20 mg PO DAILY PRN (Reason: edema) Qty: 90 1RF (DME) Glucometer See Rx Instructions .Route .MEDSUPPLY Qty: 1 0RF Rx Instructions: test blood glucose twice daily (DME) Glucose test strips See Rx Instructions .Route .MEDSUPPLY Qty: 100 0RF Rx Instructions: test blood glucose twice daily (DME) Lancets See Rx Instructions .Route .MEDSUPPLY Qty: 100 0RF Rx Instructions: test blood glucose twice daily Discharge Orders: Discharge ED (Routine); Ordered 08/29/24 Ordered By: Tl Nation Referrals: Anjana Gordon DO [Primary Care Provider, Family Practice] Patient Instructions: Dehydration (DC) Activity Restrictions/Additional Instructions: Push fluids and get some rest. Follow-up with your primary care physician as needed. 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
[2024-08-29 19:52] VITALS: BP 122/77; PULSE 97; RESP 16; O2SAT 100
== END 2024-08-29 19:54 | disposition home or self-care (01) ==
PROVIDERS: Emergency Provider Emergency Medicine; PCP Family Medicine
DX: E86.0 Dehydration (principal); S93.401A Sprain of unspecified ligament of right ankle, initial encounter; D50.9 Iron deficiency anemia, unspecified; Z79.82 Long term (current) use of aspirin; Z79.84 Long term (current) use of oral hypoglycemic drugs; F17.210 Nicotine dependence, cigarettes, uncomplicated; E11.9 Type 2 diabetes mellitus without complications; E78.5 Hyperlipidemia, unspecified; I10 Essential (primary) hypertension; Z85.528 Personal history of other malignant neoplasm of kidney; W19.XXXA Unspecified fall, initial encounter
CPT/HCPCS: 36415; 73610; 80048; 85025; 99284; J7030

== ENCOUNTER → 2024-09-02 14:42 | Outpatient (BNVA) | payer OTHER, SELFPAY | PROVIDERS: PCP Family Medicine; Visit Provider Family Medicine | DX: D50.9 Iron deficiency anemia, unspecified (principal); E86.0 Dehydration | CPT/HCPCS: 80048; 82728; 83550; 85025 ==

== ENCOUNTER → 2024-09-14 08:21 | Outpatient (BNVA) | payer OTHER, SELFPAY | PROVIDERS: PCP Family Medicine; Visit Provider Family Medicine | DX: E11.9 Type 2 diabetes mellitus without complications (principal) | CPT/HCPCS: 80048; 83036 ==

== ENCOUNTER → 2024-12-06 08:26 | Outpatient (BNVA) | payer OTHER, SELFPAY | PROVIDERS: PCP Family Medicine; Visit Provider Family Medicine | DX: D50.9 Iron deficiency anemia, unspecified (principal); D50.8 Other iron deficiency anemias; E11.9 Type 2 diabetes mellitus without complications | CPT/HCPCS: 80048; 82728; 83036; 83550; 85025 ==